=== PATIENT | male | born 1960 | race Caucasian/White ===

== ENCOUNTER 2019-01-13 21:34 | Emergency (ER) | payer MEDICAID ==
[~2019-01-13] VITALS: Ht 170.2 cm; Wt 108.9 kg
[2019-01-13 22:35] VITALS: BP_SYST 149
--- NOTE | 2019-01-14 01:11 | NUR ---
Patient to ER bed LEONG WAY to gown for evaluation. Side rails up. Report given to FREDERIC BRAND.
--- NOTE | 2019-01-14 01:15 | NUR ---
Patient to ER via triage for evaluatin of bite to right eye earlier, no visual changes reported. Patient is awake, alert and oriented in no acute distress, vital signs stable, respirations even and unlabored, skin warm and dry to touch. Patient able to ambulate without difficulty to Hallway bed with family at his side. Patient resting quietly in position of comfort. Awaiting evaluation by ER MD, will continue to observe and assess.
--- NOTE | 2019-01-14 02:06 | NUR ---
ER at bedside examining patient.
[2019-01-14] MEDS ORDERED: ACYCLOVIR 400 MG TABLET PO ONE (02:30)
[2019-01-14 02:45] VITALS: BP_SYST 130
--- NOTE | 2019-01-14 02:45 | NUR ---
Patient given written and verbal discharge instructions and verbalizes understanding. ER MD discussed with patient the results and treatment provided. Patient in stable condition. ID arm band removed. Rx of Ibuprofen, Acyclovir given. Patient educated on pain management and to follow up with PMD. Pain Scale 0. Opportunity for questions provided and answered. Medication side effect fact sheet provided. Patient left ER in no acute distress, able to ambulate without difficulty with slow, steady gait with family at his side. No adverse reaction noted to medication.
== END 2019-01-14 02:45 | disposition home or self-care (01) ==
LOC: SED 21:34
DX: S00.261A Insect bite (nonvenomous) of right eyelid and periocular area, initial encounter (principal); B02.9 Zoster without complications; E11.9 Type 2 diabetes mellitus without complications; I10 Essential (primary) hypertension; W57.XXXA Bitten or stung by nonvenomous insect and other nonvenomous arthropods, initial encounter; Y93.89 Activity, other specified; Y92.89 Other specified places as the place of occurrence of the external cause; Y99.8 Other external cause status
CPT/HCPCS: 70486-TC; 99284